=== PATIENT | male | born 2000 | race African-American/Black ===

== ENCOUNTER 2023-06-23 10:14 | Day surgery (SDC) | payer OTHER ==
[~2023-06-23] VITALS: Ht 188 cm; Wt 79.9 kg
[~2023-06-23 10:14] MED LIST: ceFAZolin SOD 2 GM in IV 1 EA IV ONE
[2023-06-23] MEDS ORDERED: LR 1,000 ML IV SCH ×3 (11:15→23:00)
[2023-06-23] MEDS ORDERED: TRANEXAMIC ACID 100 MG/ML 10ML VIAL As Ordered ONE (11:48)
[2023-06-23] MEDS ORDERED: ROPIvacaine 0.5% 30ML VIAL PN ONE (12:00)
[2023-06-23] MEDS ORDERED: LIDOCAINE 1% SDV 5ML VIAL PN ONE (12:00)
[2023-06-23] MEDS ORDERED: LIDOCAINE W/EPINEPHRINE 1% 20ML VIAL As Ordered ONE (12:08)
[2023-06-23] MEDS ORDERED: EPINEPHrine INJ 1 MG/ML 1ML AMP As Ordered ONE ×3 (12:08→15:00)
[2023-06-23] MEDS: fentaNYL 100 MCG/2 ML INJECTION IV PRN ×5 (12:21→18:12)
[2023-06-23] MEDS: MIDAZOLAM INJ 2MG/2ML VIAL IV PRN ×2 (12:21→12:22)
[2023-06-23] MEDS ORDERED: ROCURONIUM BROMIDE 50MG/5ML VIAL As Ordered ONE ×2 (12:52→13:06)
[2023-06-23] MEDS ORDERED: ONDANSETRON 4MG 2ML VIAL As Ordered ONE (12:52)
[2023-06-23] MEDS ORDERED: fentaNYL 100 MCG/2 ML INJECTION As Ordered ONE (12:52)
[2023-06-23] MEDS ORDERED: LIDOCAINE 2% 100MG/5ML SDV (FOR ANES.) As Ordered ONE (12:52)
[2023-06-23] MEDS ORDERED: propofoL 200 MG/20 ML VIAL As Ordered ONE (12:52)
[2023-06-23] MEDS ORDERED: dexmedeTOMIDine (4MCG/ML)200MCG/50ML BTL (PRECEDEX) As Ordered ONE (12:52)
[2023-06-23] MEDS ORDERED: HYDROmorphone HCL 2MG/ML 1ML VIAL As Ordered ONE (12:52)
[2023-06-23] MEDS ORDERED: MIDAZOLAM INJ 2MG/2ML VIAL As Ordered ONE (12:52)
[2023-06-23] MEDS ORDERED: GLYCOPYRROLATE INJ 0.2 MG/ML 2 ML VIAL As Ordered ONE (12:54)
[2023-06-23] MEDS ORDERED: SUGAMMADEX SODIUM 500 MG/5 ML VIAL (BRIDION) As Ordered ONE (14:11)
[2023-06-23] MEDS ORDERED: ACETAMINOPHEN 1000MG 100ML IV BAG As Ordered ONE (15:38)
[2023-06-23] MEDS ORDERED: oxyCODONE 5MG TAB PO PRN (17:30)
[2023-06-23] MEDS ORDERED: ONDANSETRON 4MG 2ML VIAL IV PRN (17:30)
[2023-06-23] MEDS ORDERED: HYDROMORPHONE HCL 0.5 MG/ 0.5 ML SYRINGE IV PRN (17:30)
[2023-06-23 19:05] VITALS: BP 162/82; TEMP 98.2; O2SAT 98
== END 2023-06-23 19:24 | disposition home or self-care (01) ==
LOC: M SDC 10:14
PROVIDERS: ATTEND Orthopaedic Surgery
DX: M23.612 Other spontaneous disruption of anterior cruciate ligament of left knee (principal); M23.222 Derangement of posterior horn of medial meniscus due to old tear or injury, left knee; M23.252 Derangement of posterior horn of lateral meniscus due to old tear or injury, left knee
CPT/HCPCS: 20902; 29866; 29883; 29888; 64425; 73560; C1713; C1762; C1769; J0131; J0171; J0690; J1100; J1170; J2250; J2405; J3010

== ENCOUNTER 2024-03-21 10:34 | Inpatient (IN) | payer OTHER ==
[~2024-03-21] VITALS: Ht 188 cm; Wt 74.1 kg
[2024-03-21 11:51] LABS: AMPHETAMINES LEVEL URINE NEGATIVE (NEGATIVE); BARBITURATES URINE NEGATIVE (NEGATIVE); BENZODIAZEPINES URINE NEGATIVE (NEGATIVE); COCAINE METABOLITE URINE NEGATIVE (NEGATIVE); METHADONE URINE NEGATIVE (NEGATIVE); OPIATES URINE NEGATIVE (NEGATIVE)
[2024-03-21 11:52] LABS: PHENCYCLIDINE URINE NEGATIVE (NEGATIVE)
[2024-03-21 11:53] LABS: CANNABINOIDS URINE POSITIVE (NEGATIVE)
[2024-03-21 11:55] LABS: HEMATOCRIT 40.8 % (42.0-52.0); HEMOGLOBIN 13.7 g/dl (13.5-17.5); MEAN CORPUSCULAR HGB CONC 33.6 g/dl (32.0-36.5); MEAN CORPUSCULAR VOLUME 101.2 fl (80.0-96.0); PLATELET COUNT, AUTOMATED 231 10^3/uL (150-450); RED BLOOD COUNT 4.03 10^6/uL (4.30-6.10); WHITE BLOOD COUNT 5.3 10^3/uL (4.0-10.0)
[2024-03-21 12:05] LABS: ETHYL ALCOHOL (ETHANOL) < 0.003 % (0.000-0.010)
[2024-03-21 12:07] LABS: ALBUMIN 4.1 G/DL (3.2-5.2); ALKALINE PHOSPHATASE 100 U/L (46-116); ALT/SGPT 12 U/L (7.0-40); AST/SGOT 12 U/L (<34); BILIRUBIN,DIRECT 0.5 MG/DL (<0.4); BILIRUBIN,TOTAL 1.8 MG/DL (0.3-1.2); BLOOD UREA NITROGEN 12 MG/DL (9-23); CALCIUM LEVEL 9.6 MG/DL (8.5-10.1); CARBON DIOXIDE LEVEL 29 MMOL/L (20-31); CHLORIDE LEVEL 110 MMOL/L (98-107); CREATININE FOR GFR 0.83 MG/DL (0.70-1.30); GLOMERULAR FILTRATION RATE > 60.0 (>60); GLUCOSE, FASTING 101 MG/DL (60-100); POTASSIUM SERUM 4.9 MMOL/L (3.5-5.1); SALICYLATE LEVEL < 3.0 MG/DL (<30); SODIUM LEVEL 142 MMOL/L (136-145); TOTAL PROTEIN 7.4 G/DL (5.7-8.2)
[2024-03-21] MEDS ORDERED: HOME MED LIST COMPLETE! XX SCH (12:50)
[2024-03-21] MEDS ORDERED: MOM 30ML SUSPENSION UDC PO PRN (13:30)
[2024-03-21] MEDS ORDERED: MAALOX 30 ML SUSP *UDC PO PRN (13:30)
[2024-03-21 17:05] VITALS: BP 116/58; TEMP 98.7; O2SAT 99
[2024-03-22 06:28] VITALS: BP 114/56; TEMP 97.7; O2SAT 99
[2024-03-22] MEDS: NICOTINE 14 MG/24 HR TRANSDERMAL TD SCH (13:15)
[2024-03-22 15:25] VITALS: BP 130/74; TEMP 97.8; O2SAT 98
[2024-03-23 06:25] VITALS: BP 109/69; TEMP 97.5; O2SAT 99
[2024-03-23 16:36] VITALS: BP 121/68; TEMP 97.9; O2SAT 100
[2024-03-24 06:15] VITALS: BP 129/76; TEMP 97.8; O2SAT 98
[2024-03-24] MEDS: ACETAMINOPHEN TAB 650MG DOSE (2X325MG) PO PRN (06:56)
[2024-03-24] MEDS: IBUPROFEN 400MG TAB PO PRN (10:53)
[2024-03-24 16:50] VITALS: BP 118/72; TEMP 97.4; O2SAT 100
[2024-03-24] MEDS: traZODone 50 MG TAB PO PRN (20:28)
[2024-03-25] MEDS: diphenhydrAMINE 25MG CAP PO PRN (02:28)
[2024-03-25 06:30] VITALS: BP 133/57; TEMP 97.6; O2SAT 100
== END 2024-03-25 12:56 | disposition home or self-care (01) | DRG 881 ==
LOC: M ED 10:34 → EDBD 10:34 → M ED INP 13:26 → M PSY 16:16
PROVIDERS: ADMIT Psychiatry & Neurology Psychiatry; ATTEND Psychiatry & Neurology Psychiatry
DX: F43.21 Adjustment disorder with depressed mood (principal); R45.851 Suicidal ideations; F17.290 Nicotine dependence, other tobacco product, uncomplicated; Z63.0 Problems in relationship with spouse or partner; Z59.86 Financial insecurity

== ENCOUNTER 2024-03-27 11:03 | Emergency (ER) | payer OTHER ==
[~2024-03-27] VITALS: Ht 188 cm; Wt 77.0 kg
[2024-03-27 11:03] VITALS: BP 117/64; TEMP 98.2; O2SAT 100
[2024-03-27 13:57] LABS: BASO % 0.2 % (0.0-1.0); EOS % 0.1 % (0.0-3.0); HEMATOCRIT 36.5 % (42.0-52.0); HEMOGLOBIN 12.4 g/dl (13.5-17.5); LYMPH # 2.1 10^3/uL (1.5-5.0); LYMPH % 19.6 % (24.0-44.0); MONO # 1.4 10^3/uL (0.0-0.8); MONO % 13.4 % (2.0-8.0); NEUTROPHILS # 7.2 10^3/uL (1.5-8.5); NEUTROPHILS % 66.4 % (36.0-66.0); PLATELET COUNT, AUTOMATED 243 10^3/uL (150-450); RED BLOOD COUNT 3.65 10^6/uL (4.30-6.10); WHITE BLOOD COUNT 10.8 10^3/uL (4.0-10.0)
[2024-03-27 14:19] LABS: BLOOD UREA NITROGEN 7 MG/DL (9-23); CALCIUM LEVEL 8.7 MG/DL (8.5-10.1); CARBON DIOXIDE LEVEL 27 MMOL/L (20-31); CHLORIDE LEVEL 104 MMOL/L (98-107); CREATININE FOR GFR 0.81 MG/DL (0.70-1.30); GLOMERULAR FILTRATION RATE > 60.0 (>60); GLUCOSE, FASTING 84 MG/DL (60-100); POTASSIUM SERUM 4.3 MMOL/L (3.5-5.1); SODIUM LEVEL 135 MMOL/L (136-145)
[2024-03-30] MEDS ORDERED: CIPR500T39 PO (07:39)
== END 2024-03-27 14:54 | disposition home or self-care (01) ==
LOC: M ED 11:03
DX: R10.9 Unspecified abdominal pain (principal); D64.9 Anemia, unspecified